=== PATIENT | female | born 1955 | race Caucasian/White ===

== ENCOUNTER 2024-12-04 21:17 | Emergency (ER) | payer MEDICARE ==
[~2024-12-04] VITALS: Ht 180.3 cm; Wt 90.7 kg
[2024-12-04] MEDS ORDERED: APRESOLINE ONE (21:59)
[2024-12-04] MEDS ORDERED: ZOFRAN ONE (21:59)
[2024-12-04 22:01] LABS: +ADD MANUAL DIFF(NO CHRG) NO; BASOPHIL % 0.4 % (0.1-1.2); EOSINOPHIL # 0.1 10^3/uL (0.0-0.2); EOSINOPHIL % 1.4 % (0.0-5.0); HEMOGLOBIN 12.5 g/dL (12.0-15.0); LYMPHOCYTES # 0.99 10^3/uL1 (1.0-4.8); LYMPHOCYTES % 11.7 % (24.0-44.0); MEAN CORP HGB 29.1 pg (26-34); MEAN CORP HGB CONCENTRATION 32.9 g/dL (33-36.5); MEAN CORP VOLUME 88.4 fL (78-100); MONOCYTES # 0.3 10^3/uL (0.3-0.8); MONOCYTES % 3.7 % (5.0-12.0); NEUTROPHILS % 82.6 % (41.0-85.0); PLATELET COUNT 253 10^3/uL (150-400); RED CELL DISTRIBUTION WIDTH 13.8 % (11.5-14.5); WHITE BLOOD CELL 8.5 10^3/uL (4.5-11.0)
[2024-12-04 22:02] LABS: BILIRUBIN,URINE NEGATIVE (NEGATIVE); LEUKOCYTE ESTERASE ,URINE TRACE (NEGATIVE); NITRATE,URINE NEGATIVE (NEGATIVE); UROBILINOGEN,URINE 0.2 E.U./dL (0.2)
[2024-12-04 22:04] LABS: APPEARANCE,URINE CLEAR; UA COLOR YELLOW
[2024-12-04] MEDS: APRESOLINE IV STA (22:04)
[2024-12-04] MEDS: ZOFRAN IV STA (22:05)
[2024-12-04 22:14] VITALS: BP_SYST 179; BP_DIAS 101; BP_DIAS 107; PULSE 84; RESP 18; TEMP 97.9; O2SAT 94
[2024-12-04 22:22] LABS: ALBUMIN(ML) 3.9 g/dL (3.4-5.0); ALBUMIN/GLOBULIN RATIO 1.054; ANION GAP 12.1; BUN/CREATININE RATIO 14.13 (10.0-20.0); CALCIUM 9.2 mg/dL (8.4-10.5); CARBON DIOXIDE 29.1 mmol/L (20.0-32); CREATININE SERUM 0.92 mg/dL (0.59-1.40); EST GFR, NON-AA 60.2 (>/=60); POTASSIUM 3.2 mmol/L (3.6-5.2)
[2024-12-04] MEDS ORDERED: COMPAZINE ONE (22:58)
[2024-12-04] MEDS: COMPAZINE IV STA (22:59)
[2024-12-04 23:14] VITALS: BP 174/90; PULSE 79; RESP 18; TEMP 97.9; O2SAT 93
[2024-12-04] MEDS ORDERED: 1/2 1000ML/KCL 20MEQ 1,000 ML ONE (23:41)
[2024-12-04] MEDS ORDERED: ASPIRIN ONE (23:41)
[2024-12-04] MEDS: ASPIRIN PO STA (23:47)
[2024-12-04] MEDS: 1/2 1000ML/KCL 20MEQ 1,000 ML IV STA (23:47)
[2024-12-04 23:49] VITALS: BP 171/90; PULSE 81; RESP 18; TEMP 97.9; O2SAT 94
[2024-12-05 00:15] VITALS: BP 163/92; PULSE 84; RESP 18; TEMP 97.9; O2SAT 94
== END 2024-12-05 00:12 | disposition short-term general hospital (02) ==
LOC: ER 21:17
DX: G45.9 Transient cerebral ischemic attack, unspecified (principal); I16.0 Hypertensive urgency; E87.6 Hypokalemia; R11.2 Nausea with vomiting, unspecified; R41.3 Other amnesia; I10 Essential (primary) hypertension
CPT/HCPCS: 99285; 96365; 96375; 70450; 71045; 87086; 80053; 85025; 82948; 36415; 84484; 81001; 93005; J3480; J0360; J0780; J2405; J8499; J7030